=== PATIENT | male | born 1950 | race Caucasian/White ===

== ENCOUNTER 2017-02-13 06:40 | Day surgery (SDC) | payer MEDICARE ==
[~2017-02-13 06:40] MED LIST: Buffered Lidocaine 0.9% SYRIN* 5 ML/SYR SYRINGE INTRADERM ONE
[2017-02-13] MEDS ORDERED: Buffered Lidocaine 0.9% SYRIN* 5 ML/SYR SYRINGE ONE (06:46)
[2017-02-13] MEDS ORDERED: Lidocaine 4% TOPICAL* 50 ML TOP.SOLN ONE (07:23)
[2017-02-13] MEDS ORDERED: Oxymetazoline 0.05% NASAL SPR* 15 ML BTL ONE (07:23)
[2017-02-13] MEDS ORDERED: Bacitracin OINTMENT* 1 TUBE ONE (07:23)
[2017-02-13] MEDS ORDERED: Lidocaine 1.5% EPI 1:200,000* 30 ML SDV ONE (07:39)
[2017-02-13] MEDS ORDERED: Midazolam* 1 MG/ML 2 ML VIAL (2 MG) ONE (07:47)
[2017-02-13] MEDS ORDERED: fentaNYL* 50 MCG/ML 2 ML VIAL (100 MCG VIAL) ONE (07:47)
[2017-02-13] MEDS ORDERED: Ondansetron INJ* 2 MG/ML VIAL ONE (07:54)
[2017-02-13] MEDS ORDERED: Dexamethasone IV* 4 MG/ML 1 ML (4 MG) ONE (07:54)
[2017-02-13] MEDS ORDERED: Famotidine IV* 10 MG/ML 2 ML (20 mg) ONE (07:54)
[2017-02-13] MEDS ORDERED: Lidocaine 2% PF * 5 ML VIAL ONE (07:54)
[2017-02-13] MEDS ORDERED: Propofol* 10 MG/ML 20 ML BTL IV PUSH ONE (07:54)
[2017-02-13] MEDS ORDERED: Levalbuterol 1.25MG/0.5ML NEB INH PRN (08:15)
[2017-02-13] MEDS ORDERED: Ondansetron INJ* 2 MG/ML VIAL IV PRN (08:15)
[2017-02-13] MEDS ORDERED: Acetaminophen TAB* 325 MG PO PRN (08:15)
[2017-02-13] MEDS ORDERED: fentaNYL* 50 MCG/ML 2 ML VIAL (100 MCG VIAL) IV PRN (08:15)
[2017-02-13] MEDS ORDERED: DiMENhydriNATE IV* 50 MG/ML VIAL IV PUSH PRN (08:15)
[2017-02-13] MEDS ORDERED: EPHEDrine (Pressors)* 50 MG/ML VIAL ONE (08:18)
[2017-02-13 09:17] VITALS: BP 154/84
--- NOTE | 2017-02-13 18:38 | OP ---
DATE OF OPERATION: 02/13/17 - [facility] DATE OF : 46 SURGEON: Luis Madsen MD ANESTHESIOLOGIST: Dr. Hanks ANESTHESIA: General laryngeal mask airway anesthesia. PRE-OP DIAGNOSES: Septal deviation and turbinate hypertrophy. POST-OP DIAGNOSES: Septal deviation and turbinate hypertrophy. OPERATIVE PROCEDURE: Nasal septoplasty and inferior turbinate cautery and outfracture. COMPLICATIONS: None. CONDITION: Good. SPECIMEN: Septal cartilage and bone. ESTIMATED BLOOD LOSS: Minimum. DESCRIPTION OF PROCEDURE: The patient was taken to the operating room and placed in the supine position on the operating table, general anesthesia induced , maintained with laryngeal mask airway anesthesia. Nose was packed bilaterally with cottonoids impregnated with oxymetazoline and 4% lidocaine. He was draped for the surgery. After several minutes, the packs were removed and the septum and inferior turbinates were injected with lidocaine with epinephrine. What happened was, it looked like his septal cartilage and bone was snapped off the maxillary crest and was shifted into the left nostril. Hemitransfixion incision was made in the right anterior septum. Mucoperichondrial flap was raised. Bony cartilaginous junction opened and some cartilage along the maxillary crest was removed and some spurring was removed. I was able to able swing most of the bony cartilage back over and get it to lay right where it was supposed to in the midline and then bring the anterior septal cartilage back over to once the fixed buccal was removed. I morselized some cartilage and placed back the mucoperichondrial flap. The hemitransfixion incision was closed with 4-0 simple interrupted chromic, a 4-0 gut quilting stitch was placed. The Elmed was used to do intramural cautery of his inferior turbinates bilaterally. These were then outfractured. Magnetic splints were placed, that have been smeared with antibiotic ointment and sutured in place with Prolene. The patient tolerated the procedure well, no complications, transferred to the recovery room in stable condition. [id number]/[facility] #: [id number] MTDD
== END 2017-02-13 09:40 | disposition home or self-care (01) ==
LOC: OR 06:40
PROVIDERS: ATTEND Otolaryngology
DX: J34.2 Deviated nasal septum (principal); J34.3 Hypertrophy of nasal turbinates; J44.9 Chronic obstructive pulmonary disease, unspecified; Z87.891 Personal history of nicotine dependence; N52.9 Male erectile dysfunction, unspecified
CPT/HCPCS: A9270-GY; J1100; J2250; J2405; J2704; J3010

== ENCOUNTER 2018-05-13 09:00 | Day surgery (SDC) | payer BC, OTHER ==
--- NOTE | 2018-05-02 21:03 | HP ---
PREOPERATIVE HISTORY AND PHYSICAL: DATE OF SURGERY/ADMISSION: 05/13/18 - [facility] DATE OF OFFICE VISIT/ENCOUNTER: 04/14/18 ATTENDING SURGEON: Tiffanie Smart MD * (DICTATED BY MAGDA REYNOLDS) PROCEDURE: Right wrist carpal tunnel release. CHIEF COMPLAINT: Right hand numbness and tingling. HISTORY OF PRESENT ILLNESS: This is a 67-year-old male who complains of numbness and tingling in his right hand that has been ongoing. He has experienced complete numbness in his radial 3 fingers for the past year. He recently had a nerve conduction study, which showed severe carpal tunnel on the right. 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 Whenever he does hands on work, it is rather bothersome. He denies any pain per se and there has been no specific injury. He is interested in pursuing surgical intervention at this time in the form of a right wrist carpal tunnel release. PAST MEDICAL HISTORY: 1. Hypertension. 2. COPD. PAST SURGICAL HISTORY: 1. Cholecystectomy. 2. Appendectomy. CURRENT MEDICATIONS: 1. Combivent Respimat mcg/ACT 1 puff 4 to 6 times daily p.r.n. 2. Lisinopril 10 mg daily. 3. Multivitamin adult 1 tab daily. 4. ProAir HFA 2 puffs by mouth every 4 hours as needed. ALLERGIES: No known drug allergies. FAMILY MEDICAL HISTORY: Heart disease, hypertension, and stroke. 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 He is a former smoker. He quit approximately 4 years ago. Prior to that, he smoked a pack and a half per day for "his entire life." He does currently smoke marijuana on occasion and he does not drink alcohol. REVIEW OF SYSTEMS: Negative for general, cephalic, cardiovascular, respiratory , GI, , other musculoskeletal, integumentary, endocrine, neurologic, and hematologic symptoms. Infectious Disease is negative for history of MRSA, hepatitis C, and HIV. PHYSICAL EXAMINATION GENERAL: Well-developed, well-nourished 67-year-old male, in no acute distress. He is alert and oriented x3, in no acute distress. VITAL SIGNS: Height 5 feet 7 inches, pulse rate 76, blood pressure 158/82 and weight 200 pounds. HEENT: Normocephalic, atraumatic. Pupils are equal, round, and reactive to light and accommodation. Extraocular movements are intact. Throat is clear. NECK: Supple. No palpable lymph nodes. PULMONARY: Lungs are clear to auscultation bilaterally. No wheezes, rales, or rhonchi. CARDIOVASCULAR: Regular rate and rhythm. S1, S2. No murmurs, rubs, or gallops. No edema. ABDOMEN: Positive bowel sounds. Soft, nontender. MUSCULOSKELETAL: On exam of his right hand, he has slight thenar wasting. He has weakness resisting thumb abduction. He has good flexion and extension in his fingers. Positive Tinel sign at the median nerve of the right wrist. Mild decrease in sensation to light touch throughout the median nerve distribution. NEUROLOGIC: Alert and oriented x3. Cranial nerves II through XII are intact. IMAGING STUDIES: Nerve conduction study, EMG show severe carpal tunnel syndrome on the right. IMPRESSION: Right carpal tunnel syndrome. PLAN: The patient is scheduled to undergo a right wrist carpal tunnel release with Dr. Smart on 05/13/18. He will return to the office in 10 days postop for followup and suture removal. A prescription for Ultracet was e-scribed to the patient's pharmacy for postoperative pain management. MAGDA REYNOLDS [id number]/[facility] #: [id number] MTDD
[~2018-05-13 09:00] MED LIST changes: +Famotidine IV* 10 MG/ML 2 ML (20 mg) IV ONE; +Famotidine IV* 10 MG/ML 2 ML (20 mg) ONE; +Lidocaine 1% INJ* 10 MG/ML 30 ML SDV ONE
[2018-05-13] MEDS ORDERED: fentaNYL* 50 MCG/ML 2 ML VIAL (100 MCG VIAL) ONE (10:06)
[2018-05-13] MEDS ORDERED: Midazolam* 1 MG/ML 5 ML VIAL (5 MG) ONE (10:06)
[2018-05-13] MEDS ORDERED: Naloxone* 0.4 MG/ML 1 ML VIAL IV PRN (10:36)
[2018-05-13] MEDS ORDERED: Acetaminophen TAB* 325 MG PO PRN (10:36)
[2018-05-13] MEDS ORDERED: DiMENhydriNATE IV* 50 MG/ML VIAL IV PUSH PRN (10:36)
[2018-05-13] MEDS ORDERED: Lidocaine 2% PF * 5 ML VIAL ONE (10:56)
[2018-05-13] MEDS ORDERED: Ondansetron INJ* 2 MG/ML VIAL ONE (10:56)
[2018-05-13] MEDS ORDERED: Ketorolac INJ* 30 MG/ML 1 ML VIAL ONE (10:56)
[2018-05-13] MEDS ORDERED: Propofol* 10 MG/ML 20 ML BTL IV PUSH ONE (10:56)
[2018-05-13 11:40] VITALS: BP 131/79
--- NOTE | 2018-05-14 04:21 | OP ---
DATE OF OPERATION: 05/13/18 LOCATED WITHIN [facility] DATE OF : 46 SURGEON: Tiffanie Smart MD PROGRAM ADVOCATE: MAGDA Alexis ANESTHESIA: Local MAC. PRE-OP DIAGNOSIS: Right carpal tunnel syndrome. POST-OP DIAGNOSIS: Right carpal tunnel syndrome. OPERATIVE PROCEDURE: Right carpal tunnel release. ESTIMATED BLOOD LOSS: Zero. TOURNIQUET TIME: Approximately 10 minutes. INDICATIONS FOR PROCEDURE: Mal is a 67-year-old male with numbness and tingling in the median nerve distribution of his right hand. He presents for a right carpal tunnel release. DESCRIPTION OF PROCEDURE: The patient was brought to the operating room, was given a sedation anesthetic and a local infiltration of 10 cc of 1% lidocaine in the palm of his right hand. Skin of his right hand and forearm were prepped and draped in the usual sterile fashion. The hand and forearm were exsanguinated and the tourniquet elevated to 250 mmHg. A longitudinal incision was made in the palm in line with the ring finger. We dissected sharply through the subcutaneous tissue down to the transverse carpal ligament. The ligament was divided sharply with the knife and then more proximally with the scissors. The nerve was dissected free from the surrounding tissue and there was an area of significant compression at the mid portion of the ligament. The wound was irrigated, and the skin edges reapproximated with 4-0 nylon suture. The wound was dressed with Xeroform, 4x4, Webril, and an Loc wrap. The patient tolerated the procedure well and was brought to the recovery room in good condition. [id number]/[facility] #: [id number] [facility], [place]Good
== END 2018-05-13 11:41 | disposition home or self-care (01) ==
LOC: OREAST 09:00
PROVIDERS: ATTEND Orthopaedic Surgery
DX: G56.01 Carpal tunnel syndrome, right upper limb (principal); I10 Essential (primary) hypertension; J44.9 Chronic obstructive pulmonary disease, unspecified; Z87.891 Personal history of nicotine dependence; M19.90 Unspecified osteoarthritis, unspecified site
CPT/HCPCS: J1885; J2250; J2405; J2704; J3010